=== PATIENT | female | born 1960 | race Caucasian/White ===

== ENCOUNTER 2024-11-19 00:11 | Emergency (ER) | payer MEDICARE, SELFPAY ==
[2024-11-19 00:19] VITALS: BP 109/69; PULSE 75; RESP 18; TEMP 36.7; O2SAT 97; BMI 38.3
--- OUTSIDE RECORDS SUMMARY | 2024-11-19 00:54 | XMS_ITS | Clinical Summary ---
Author Organization [place] [employer] Address [address] [facility] [place] [address] Phone Care Team Providers Care Weapons Electrical Engineering Officer Name Role Phone Wili Escobedo MD Primary Care Provider [phone] Allergies No known active allergies Medications acetaminophen (TYLENOL) 325 mg tablet Take 650 mg by mouth every 6 hours as needed. Active cetirizine (ZyrTEC) 10 mg capsule Take 1 capsule (10 mg total) by mouth 1 (one) time each day. Active metoprolol succinate (TOPROL-XL) 25 mg 24 hr tabletIndications :Paroxysmal atrial fibrillation (CMS/HCC V24, CMS/HCC V28) TAKE 1 TABLET BY MOUTH EVERY DAY 90 tablet 2 4 Active triamcinolone (NASACORT) 55 mcg nasal inhaler Administer 2 sprays into each nostril 1 (one) time each day. Active rosuvastatin (CRESTOR) 10 mg tablet TAKE 1 TABLET BY MOUTH EVERY DAY 90 tablet 1 5 Active Eliquis 5 mg tabletIndications :Paroxysmal atrial fibrillation (CMS/HCC V24, CMS/HCC V28) TAKE 1 TABLET BY MOUTH TWICE A DAY 180 tablet 1 5 Active tirzepatide, weight loss, (Zepbound) 5 mg/0.5 mL injection Inject 0.5 mL (5 mg total) under the skin every 7 (seven) days. Active Active Problems Problem Noted Date Diagnosed Date Mixed hyperlipidemia 03/17/2024 Assessment & Plan (03/17/2024 2:26 PM EST): Last LDL cholesterol June. Will update a new fasting lipid panel to reassess lipid control. Continue on current statin therapy. Orders: Lipid panel; Future Lipid panel Ascending aorta dilation (CMS/HCC V24) Overview (02/04/2024): Last Assessment & Plan: The patient has a history of an ascending aorta dilation. The ascending aorta was noted to be borderline dilated at 3.8 cm on the echocardiogram done in July 2022. We will reevaluate the ascending aorta dilation with a new echocardiogram in 1 year. Assessment & Plan (03/17/2024 2:26 PM EST): Patient has a history of mild dilatation of ascending aorta at 3.8 cm. Will have her undergo a repeat echocardiogram to reevaluate for progression. Orders: Transthoracic echocardiogram (TTE) complete with PRN contrast, bubble, strain, and 3D order panel; Future Obstructive sleep apnea 07/13/2022 Overview (02/04/2024): Last Assessment & Plan: The patient has a history of obstructive sleep apnea. During today's visit, I explained the importance of addressing her sleep apnea given her new diagnosis of paroxysmal atrial fibrillation. The patient expressed understanding about this and she is now agreeable to the sleep study. We will reorder the sleep study. CAD (coronary artery disease) 03/18/2021 Overview (02/04/2024): Last Assessment & Plan: The patient has a history of coronary artery disease. Currently, the patient denies any chest pain at rest or with exertion. The patient continues on secondary preventive therapy for CAD, including: statin and beta natoine. Will continue current therapy. Assessment & Plan (03/17/2024 2:26 PM EST): Patient underwent a left heart catheterization May 2021 which showed normal coronary arteries. Orders: Transthoracic echocardiogram (TTE) complete with PRN contrast, bubble, strain, and 3D order panel; Future Atrial fibrillation (CMS/HCC V24, CMS/[facility] V28) 1 05/18/2020 Overview (02/04/2024): Last Assessment & Plan: The patient has paroxysmal atrial fibrillation. This was demonstrated during a recent 30-day monitor. The patient was started on beta-antoine therapy with metoprolol and anticoagulation therapy with Eliquis. However, the patient did not start these medications. During today's visit, I had a conversation with the patient regarding her paroxysmal atrial fibrillation. The patient has a [id number] score of 2 (female gender and CAD). As such, anticoagulation therapy is recommended by the ACC A- fib guidelines. The patient does not have any past history of significant abnormal bleeding. We did discuss the fact that anticoagulation therapy could result in episodes of bleeding. Specifically, we discussed the risk of minor and major bleeding. After the discussion about the benefits and risk of anticoagulation therapy the patient agreed to start the anticoagulation therapy with Eliquis. She will also start the beta-antoine therapy with metoprolol as part of a rate control as part of a rate control strategy. Assessment & Plan (03/17/2024 2:26 PM EST): Patient has a history of paroxysmal atrial fibrillation. She continues on anticoagulation with apixaban 5 mg orally twice daily and metoprolol. Her heart rate is well-controlled today. She will occasionally experience a brief fluttering sensation, however denies any sustained palpitations. We discussed the role of undiagnosed sleep apnea and its effect on her heart including atrial fibrillation. At her last office visit, she was ordered for a sleep study, however this was not completed. She adamantly does not want to undergo a sleep study as she will not be able to tolerate the mask. She did undergo a sleep study in the past and is not tolerant of CPAP therapy. At this point, she will continue to work on healthy lifestyle and weight loss and continue current therapies. Orders: ECG 12 lead Transthoracic echocardiogram (TTE) complete with PRN contrast, bubble, strain, and 3D order panel; Future Dyspnea 03/18/2021 Overview (02/04/2024): Last Assessment & Plan: The patient continues to experience shortness of breath with exertion. She initially underwent a stress echocardiogram that was noted to be abnormal. Subsequently, she underwent a left heart catheterization that did not show any significant CAD. Given the scenario, it is unlikely that the patient's dyspnea is cardiac in nature. Therefore, we will discontinue the metoprolol. She will continue on aspirin and rosuvastatin. The patient will continue to follow-up with the pulmonology service regarding her dyspnea given her history of bronchial asthma. 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 Nuclear sclerosis 03/02/2014 Encounters Date Type Department Care Team Description 10/15/2024 Telephone [facility] [address] [place] [address] Linda-Price Gonzales MD Hypotension from Last 3 Months Immunizations Name Administration Dates Next Due Pfizer SARS-CoV-2 COVID-19, mRNA, LNP-S, preservative free 02/15/2021,07/04/2020,06/13/2020 Social History Tobacco Use Types Packs/Day Years Used Date Smoking Tobacco: Former Cigarettes Smokeless Tobacco: Never Tobacco Cessation:Counseling Given: Not Answered Alcohol Use Standard Drinks/Week Comments Not Currently 0 (1 standard drink = 0.6 oz pur e alcohol) Comments Unknown Sex and Gender Information Value Date Recorded Sex Assigned at Not on file Legal Sex Female 7:24 AM EST Gender Identity Not on file Sexual Orientation Not on file Obstetrics History Last Filed Vital Signs Vital Sign Reading Time Taken Comments Blood Pressure 106/71 06/04/2024 12:56 PM EST Pulse 64 03/17/2024 1:45 PM EST Temperature - - Respiratory Rate - - Oxygen Saturation 94% 03/17/2024 1:45 PM EST Inhaled Oxygen Concentration - - Weight 120 kg (265 lb) 06/04/2024 12:56 PM EST Height 172.7 cm (5' 8 ) 06/04/2024 12:56 PM EST Body Mass Index 40.29 06/04/2024 12:56 PM EST Plan of Treatment Health Maintenance Due Date Last Done Comments Breast Cancer Screening 1960 Hepatitis A Vaccines (1 of 2 - Risk 2-dose series) 11/27/1979 Cervical Cancer Screening: Pap Smear 1981 Hepatitis B Vaccines (1 of 3 - Risk 3-dose series) 2020 Cholesterol Screening (Lipid Panel) 04/09/2022 Colorectal Cancer Screening: Colonoscopy 04/09/2022 HIV Screening 04/09/2022 Hepatitis C Screening 04/09/2022 Hypertension/CHF/CAD Annual BMP Blood Test 04/09/2022 Social Influencers of Health Screening 04/09/2022 Depression Screening 04/30/2024 Influenza Vaccine (#1) 2024 , 03/12/2023, 02/17/2022, Additional history exists DTaP,Tdap,and Td Vaccines (2 - Td or Tdap) 08/12/2029 08/13/2019 Pneumococcal Vaccine: 50+ Years Completed 03/12/2023, 07/05/2010 COVID-19 Vaccine Completed 01/30/2024, , 02/15/2021, Additional history exists RSV Immunization Adult Patients Completed 05/05/2024 Zoster Vaccines Completed 08/23/2024, 04/14/2024 HIB Vaccines Aged Out No longer eligi ble based on patient's age to complete this topic HPV Vaccines Aged Out No longer eligi ble based on patient's age to complete this topic IPV Vaccines Aged Out No longer eligi ble based on patient's age to complete this topic MMR Vaccines Aged Out No longer eligi ble based on patient's age to complete this topic Meningococcal ACWY Vaccine Aged Out N o longer eligible based on patient's age to complete this topic Meningococcal B Vaccine Aged Out No l onger eligible based on patient's age to complete this topic RSV Immunization Patients Under 20 months Aged Out No longer eligible based on patient's age to complete this topic Varicella Vaccines Aged Out No longer eligible based on patient's age to complete this topic Insurance [facility] Member Subscriber Plan / Payer (Ef fective 2018-Present) Name:Lanette Monroe Relation to Subscriber:Self Name:Lanette Monroe Payer ID:[id number] Group ID:[id number] Type:Not on file Address: [address] [place] [id number] Care Teams Weapons Electrical Engineering Officer Relationship Specialty Start Date End Date Wili Escobedo MD [address] [place] [phone] PCP - General Family Medicine 03/17/24
--- OUTSIDE RECORDS SUMMARY | 2024-11-19 00:54 | XMS_ITS | Data Portability ---
Author Organization [facility] [employer] [facility] Address [address] [place] [phone] Care Team Providers Care Traffic Rate Analyst Name Role Phone MARVA HERNANDEZ Primary Care Provider Assessment No assessment recorded. Plan of Treatment Reminders Order Date Submit Date Provider Last Modified By Organization Details Last Modified Time Details Appointments None recorded. Lab culture, urine 2024 [facility] (Centralized Electronic Ordering - All Locations), Patient Can Go To The Location Of Their Choice, [id number] 18:05:31 urinalysis, dipstick 2024 [facility], [address] [place] [address], [phone] 21:04:09 BMP, serum or plasma 2024 [facility], [address] [place] [address], [phone] 21:03:40 Referral None recorded. Procedures None recorded. Surgeries None recorded. Imaging electrocard iogram 2024 [facility], [address] [place] [address], [phone] 19:59:12 Medication Orders lactated Ringers intravenous solution 2024 025 [id number], [address] [place], [address], 19:40:14 Cipro 250 mg tablet 2024 025 [id number], [address] [place], [address], 5 19:57:06 ciprofloxac in 500 mg tablet 2024 025 [id number], [address] [place], [address], 19:57:08 Patient TargetsNo targets recorded. Patient InstructionsNo instructions recorded. Reason for Referral None Reported. Results Created Date Observation Date Name Description Value Unit Range Abnormal Flag Note LastModifiedBy Organization Detail LastModifiedTime 09/26/1909/27/2024 URINE CULTU RE, UROLO GY CURTIS P urine culture, urology workup Final report Not Available [facility] ([facility]) [address] [place], [address], 09/27/2024 18:05:31 09/26/1909/27/2024 URINE CULTU RE, UROLO GY CURTIS P result 1 COMMEN T Mixed uroge nital renee Great er than 100,0 00 colon y formi ng units per mL Not Available [facility] ([facility]) [address] [place], [address], 09/27/2024 18:05:31 09/26/19 25 09/25/2024 elect murali gonzales am No observ ation record ed. [facility] Main - [address], [phone] 09/25/2024 19:59:11 Result Notes None recorded. Medical Equipment None Reported. Allergies No known drug allergies Medications Name Sig Start Date Stop Date Status Note LastModified by Organization Details LastModified Time cetirizine 10 mg tablet TAKE 1 TABLET BY MOUTH EVERY DAY NEEDED FOR ALLERGIES active Not Available Not Available No t Available azithromycin 250 mg tablet TAKE 2 TABLETS BY MOUTH TODAY, THEN TAKE 1 TABLET DAILY FOR 4 DAYS DIRECTED active Not Available Not Available No t Available prednisone 20 mg tablet TAKE 2 TABLETS BY MOUTH EVERY DAY FOR 5 DAYS active Not Available Not Available No t Available ciprofloxaci n 500 mg tablet TAKE 1 TABLET BY MOUTH EVERY 12 HOURS FOR 7 DAYS active Not Available Not Available N ot Available metoprolol succinate ER 25 mg tablet,exten ded release 24 hr TAKE 1 TABLET BY MOUTH EVERY DAY active Not Available Not Available No t Available nystatin 100,000 unit/gram topical powder APPLY TO AFFECTED AREA TWICE A DAY FOR 14 DAYS active Not Available Not Available No t Available albuterol sulfate HFA 90 mcg/actuatio n aerosol inhaler TAKE 2 PUFFS BY MOUTH EVERY 6 HOURS NEEDED FOR SHORTNESS OF BREATH WHEEZING active Not Available Not Available No t Available fluticasone propionate 50 mcg/actuatio n nasal spray,suspen salomon SPRAY 1 SPRAY IN BOTH NOSTRIL EVERY DAY IN THE MORNING active Not Available Not Available No t Available rosuvastatin 10 mg tablet TAKE 1 TABLET BY MOUTH EVERY DAY active Not Available Not Available No t Available budesonide-f ormoterol HFA 80 mcg-4.5 mcg/actuatio n aerosol inhaler TAKE 2 PUFFS BY MOUTH TWICE A DAY NEEDED WHEEZING FOR SHORTNESS OF BREATH active Not Available Not Available No t Available diclofenac 1 % topical gel APPLY TO AFFECTED AREA 4 TIMES A DAY active Not Available Not Available Not Available Gavilax 17 gram/dose oral powder DISSOLVE 17 GRAMS INTO 4 TO 8 OUNCES OF BEVERAGE AND DRINK DAILY active Not Available Not Available No t Available Eliquis 5 mg tablet TAKE 1 TABLET BY MOUTH TWICE A DAY active Not Available Not Available No t Available Trulicity 1.5 mg/0.5 mL subcutaneous pen injector INJECT0.5 ML SUBCUTANEOU SLY EVERY WEEK, ROTATE INJECTION SITES active Not Available Not Available No t Available Trulicity 0.75 mg/0.5 mL subcutaneous pen injector INJECT 0.75 MG SUBCUTANEOU SLY EVERY 7 DAYS *PA DENIED* active Not Available Not Available No t Available Trulicity 3 mg/0.5 mL subcutaneous pen injector TAKE 0.5 ML SUBCUTANEOU S INJECTION EVERY WEEK (ROTATE INJECTION SITES) active Not Available Not Available No t Available Zepbound 5 mg/0.5 mL subcutaneous pen injector INJECT 1 PEN SUBCUTANEOU SLY ONCE WEEKLY active Not Available Not Available No t Available Zepbound 2.5 mg/0.5 mL subcutaneous pen injector INJECT 2.5 MG SUBCUTANEOU S INJECTION EVERY WEEK,ROTATE INJECTION SITES active Not Available Not Available No t Available Vitals Date Recorded Oxygen saturation Oxygen saturation in Arterial blood by Pulse oximetry Heart rate Body height Respiratory rate Body weight Body temperature Systolic And Diastolic Provider Name and Address Organization Details Last Updated DateTime 5 96 % 96 % 85 /min 167.64 cm 16 /min 822243. 776 g 98.6 [degF] 130/80 mm[Hg] Not Available [facility] - production 19:15:41 Social History None recorded. Functional Status None recorded. Mental Status None recorded. Family History Nothing Reported. Medical History No medical history recorded. Gynecological HistoryNo gynecological history recorded. Obstetrics History GPAL:G 0 P 0 0 0 0 Past Encounters Encounter ID Performer Location Encounter Start Date Encounter Closed Date Diagnosis/Indication Diagnosis SNOMED-CT Code Diagnosis ICD10 Code Diagnosis Note [id number] LETICIA PENA MD [facility] [address] [place] [phone] 09/25/2024 19:02:28 09/26/2024 01:23:33 Urinary symptoms 129920785 R39.9 Evaluation in the field was performed by my nurse practitioner physicians assistant colleague, as noted above, I provided real-time direction and supervisio n for this visit. The evaluation revealed The patient is a 63-year-ol d female with a past medical history of asthma, atrial fibrillati on, CAD s/p AMI and recurrent urinary tract infections /pyeloneph ritis (last episode approximat gil two months ago), presenting with complaints of fever up to 102.5 F, burning with urination, cloudy urine, and lower abdominal pain. She reports that symptoms began about one day ago, with worsening fever today. She took acetaminop hen 1300 mg (two 650 mg tablets) approximat gil four hours prior to evaluation . She denies nausea, vomiting, flank or back pain, but endorses suprapubic (lower abdominal) discomfort . VS: BP : 130/ 80, HR 85, RR 16, SpO2 96%, Room Air at Rest, Temperatur e 98.6 FGeneral: Alert, awake, oriented, in no acute distress.L ungs: Clear to auscultati on bilaterall y.Abdomen: Soft, non-disten ded, with suprapubic tenderness ; no CVA tenderness .Urinalysi s: Positive for leukocyte esterase, nitrites, blood and ketonesBMP : Na 138 , K 3.7 , Cl 102 , iCa 1.15, TCO2 23 , Glu 117 , BUN 12 , Crea 0.9ECG: NSR 78 bpm, QTc [address]-T changesHct 44 %, Hb 15 g/dLAllerg ies: Reviewed Impression :Acute urinary tract infection (likely complicate d, given history of recurrent UTI/pyelon ephritis). No flank pain or CVA tenderness currently, making pyelonephr itis less likely at this time, but close monitoring is warranted. Plan:L[place]a [place] Ringer s 1 L administer ed.ECG confirmed normal QTc; patient started on ciprofloxa bharathi 500 mg PO BID for 7 days, with the first dose administer ed by the nurse practitioner physicians assistant. Urine culture sent for definitive organism identifica tion and susceptibi lity testing.Pt advised to continue acetaminop hen as needed; advised to decrease dose to 650 mg every 4 6 hours or 975 mg (1.5 tablets) every 8 hours as needed, ensuring safe total daily limits.Enc ouraged oral fluid intake.Dis cussed signs requiring prompt medical attention, including new or worsening flank pain, persistent or worsening fever, nausea or vomiting, rigors, or other signs of systemic illness. Primary care, consider__ _ Dispositio n: We discussed the diagnostic uncertaint y of home visits and the risk associated with this. In this case, the patient and I felt this to be an acceptable and reasonable amount of risk given the benefit of avoiding an ED visit. We discussed the need to seek care urgently/e mergently in the setting of any new or worsening serious symptoms, particular ly new or worsening flank pain, persistent or worsening fever, nausea or vomiting, rigors, or other signs of systemic illness. Health Concerns Section Related Observation LastModified by Organization Detai ls LastModified Time None Recorded Concern Status LastModified by Organization Details LastModified Time None Recorded Advance Directives Directive None Recorded Payers Insurance Date Sequence Insurance Name Policy Number Policy Grigsby Covered Member ID Grigsby Member ID Guarantor Name 09/25/2024 1 [facility] [employer] - DOS ON OR AFTER 2022 - DUAL ELIGIBLE - ALF OPTIONS AND ONE CARE (MEDICARE REPLACEMENT/ADV ANTAGE - HMO) Lanette Monroe [id number] Lanette Monroe Notes Date Note Type Note Provider Name and Address Organization Details Recorded Time 09/25/2024 text/html [facility] Nurse Triage Notes (Sarah Jones): Reason For Request: UTI/fever Patient Reports: Painful urination; Frequent and increased urination with flank pain; Painful urination with or without fever Denies: Unable to void greater than 5 hours Erection that will not go away after 2 hours Fall or trauma that results in urinary incontinence in the setting of pain Fall or injury that results in incontinence in the absence of pain Lower back pain either unilateral or bilateral, unable to void, painful urination -hematuria Inability to fully empty bladder Chief Complaints: Urinary Symptoms PMH: Asthma, Arrhythmias (e.g., Atrial Fibrillation) PMH Reviewed at 09/25/2024 Allergies Reviewed at 09/25/2024 Comments: Member calls in complaining of a fever of 102.5. Took Tylenol at 3:40 and not helping at all. Believes it is a urinary tract infection. Burning with urination and cloudy urine and back pain .symptoms for a day, fever got worse today. Has a history of UTIs and they can turn into kidney infections. 63 y.o female complains of Urinary Symptoms I provided information on the mobile health provider response time and advised the patient and/or caregiver to monitor reported signs and symptoms. I discussed the warning signs of when to seek emergency care. Jen Jones RN Rn Case Manager Organization Information for [facility] [employer] Name: [employer]. Address: [address] [place] [address], Inspector And Clipper: Ronal Albarran MD CLIA No.: [id number] Rn Case Manager POC Test Results from Mike [facility]keon Urine Dipstick (19:15:44) Urine leukocytes: 70+ CHAYO Urine nitrites: ++ NIT Urine urobilinogen: - URO Urine protein: - PRO Urine pH: 5 pH Urine blood: ++ BLO Urine specific gravity: 1.010 SG Urine ketones: + KET Urine bilirubin: - ROSIE Urine glucose: - GLU iSTAT Chem8+ (19:36:58) Na: 138 mEq/L K: 3.7 mEq/L Cl: 102 mEq/L iCa: 1.15 mmol/L TCO2: 23 mmol/L Glu: 117 mg/dL BUN: 12 mg/dL Crea: 0.9 mg/dL Hct: 44 % Hb: 15 g/dL A mmol/L Cartridge Number: [id number] EKG (19:49:26) EKG test performed. Attachments uploaded as part of this test result can be found under Documents section. .................. .................. .................. .................. .................. .................. .................. ............... Rn Case Manager Note From Mike Mckeon: Dispatched to the call address for the female with UTI symptoms. Pt states since yesterday she has had burning sensation when urinating, urgency, frequency and inability to fully empty bladder. Pt also complains of diffuse lower abd pain and lower back pain. She advises she is prone to UTIs with her last one being a few months ago. She states she had a fever of 102.5 but gook 1300mg of Tylenol with good effect. Pt denies chest pain, diff breathing/sob, cough, n/v/d or other complaints at this time. Pt was found opening door, CAOx4, airway open and patent, breathing non labored, able to speak in full sentences, -JVD, -HEENT, skin PWD with good turgor, mucous membranes pink and moist, lungs CTA, pupils PERRL, +CMSx4, afebrile, abd soft non tender/distended, UA (Positive). Pt was assessed with full set of vitals. UA. [facility]. IV with Blood draw (20g R AC) BMP, 1LR of LR. 12 lead EKG. [facility] [place]. Pt given 500mg PO Cipro. IV removed. Script called into preferred pharmacy. Red flags discussed. ALL times are approx. [facility] [place] Orders: culture, urine: Performed urinalysis, dipstick: Performed BMP, serum or plasma: Performed [facility] [place] Medication Orders: lactated Ringers intravenous solution: Administered Cipro 250 mg tablet: Administered .................. .................. .................. .................. .................. .................. .................. ............... [facility] [place] Consulted: Leticia Pena .................. .................. .................. .................. .................. .................. .................. ............... Disposition: Fulfilled LETICIA PENA MD [address] [facility],[address], [place], [phone], LISA SILVERMAN 09/25/2024 20:49:33 OBGyn Episode No OBEpisode recorded.
--- NOTE | 2024-11-19 02:15 | ED_ITS ---
HPI - Ear Problem General Chief complaint: Ear Problems Stated complaint: ear pain Time Seen by Provider: 11/19/24 01:52 Source: patient Mode of arrival: ambulatory Limitations: no limitations History of Present Illness ED Provider: Dr. Ashlie Sharma HPI Narrative: Patient comes to the emergency room complaining of bilateral ear pain. Patient states that she has been out swimming. Patient states that she has a chronic ear condition secondary to her eczema where her ears get externally very swollen. Patient states that she has noted that now her ears are more swollen bilaterally. Patient complaining of having the sensation that she is under water. Denies fever or chills. Patient also reports that she recently had a URI Related Data Previous Rx's ?Medication ?Instructions ?Recorded ciprofloxacin 0.3 %-dexamethasone 4 drp otic (ears) BI D 7 days #7.5 11/19/24 0.1 % ear drops,suspension mL Allergies Allergy/AdvReac Type Severity Reaction Status Date / Time No Known Allergies Allergy Unverified 11/19/24 00:23 Review of Systems Review of Systems: Constitutional : No Weight loss, No Fever, No Chills, No Night Sweats, No Fatigue, No Malaise ENT/Mouth : No Hearing loss, complaining of bilateral ear pain, complaining of external ear swelling bilaterally, No Nasal Congestion, No Sinus Pain, No Hoarseness, No sore throat, No Rhinorrhea, No Swallowing Difficulty Eyes: No Eye Pain, No Swelling, No Redness, No Foreign Body, No Discharge, No Vision Changes Cardiovascular : No Chest Pain, No SOB, No Dyspnea on Exertion, No Orthopnea, No Edema, No Palpitations Respiratory : No Cough, No Sputum, No Wheezing, No Smoke Exposure, No Dyspnea Gastrointestinal : No Nausea, No Vomiting, No Diarrhea, No Constipation, No abdominal Pain, No Hematochezia, No Melena Genitourinary : no irregular bleeding, No Dysuria, No Urinary Frequency, No Hematuria, No Urinary Incontinence, No Urgency, No Flank Pain, No Urinary Flow Changes, No Hesitancy Musculoskeletal : No joint pain, No Myalgias, No Joint Swelling Skin : No Skin Lesions, No rash Neuro : No Weakness, No Numbness, No Paresthesias, No Loss of Consciousness, No Dizziness, No Headache Psych : No Anxiety/Panic, No Depression, No SI/HI/AH/VH, No Social Issues, Heme/Lymph: No Bruising, No Bleeding,No Lymphadenopathy Endocrine : No Polyuria, No Polydipsia, No Temperature Intolerance [facility] Social History Social History (System 05/25/22 @ 15:56 by Lanette Hassan) Smoked in Last 30 Days: No Substance Use Type: Marijuana Advance Directives: No Advance Directives Information Provided: Yes Patient : No Physical Exam Exam: Exam: Appearance: Alert. Oriented X3. No acute distress. Eyes: Pupils equal, round and reactive to light. ENT: Pharynx normal. Patient has bilateral external ears are very swollen. Patient states that they are more swollen that baseline, patient has eczema which makes her ears look very swollen by another worse. Difficult to visualize did. Tympanic membranes due to the ear canals swelling. No pain to palpation over the mastoid bones bilaterally Neck: Normal inspection. Neck supple. No lymph nodes noted. No crepitus CVS: Normal heart rate and rhythm. Pulses normal. Normal S1 and S2 Respiratory: No respiratory distress. Breath sounds normal. No Wheezing. No rales Abdomen: Soft and nontender. No rigidity. No distention. Skin: Skin warm and dry. Normal skin color. Normal skin turgor. Extremities: No lower extremity edema. No Lacerations. No Rash Neuro: Oriented X 3. No motor deficit. No sensory deficit. Moving all extremities. No slurred speech. CN 2 through 12 grossly intact Psych: calm, cooperative, normal affect Vital Signs: Vital Signs: Last Vital Signs Temp 98.1 F 11/19/24 00:19 Pulse 75 11/19/24 00:19 Resp 18 11/19/24 00:19 BP 109/69 11/19/24 00:19 Pulse Ox 97 11/19/24 00:19 O2 Del Method Room Air 11/19/24 00:19 BMI result Body Mass Index 38.3 Medical Decision Making Medical Decision Making MDM Narrative: I discussed the physical exam with the patient. Due to the swelling, it is very hard to see the tympanic membrane. one earwik was applied in each ear. Patient will need otic abx. Patient agrees with plan. Given the presentation of the patient, it almost looks like external otitis. However, patient states that her ears are all way significantly swollen but this time they are a bit more swollen, no pain over the mastoid bone bilaterally Differential Diagnosis Differential Diagnoses: The differential diagnosis associated with the presentation includes (As above) Discharge Plan Discharge Clinical Impression: Otitis media Patient Disposition: Home, Self-Care Instructions: Ear Infection (ED) Additional Instructions: Please follow-up with your primary care physician tomorrow. If you have any worsening or new symptoms, please return to the emergency room or call 911 Prescriptions: New ciprofloxacin-dexamethasone 0.3-0.1 % drops,suspension 4 drp otic (ears) BID 7 Days Qty: 7.5 0RF Print Language: Monegasque
[2024-11-19 02:36] VITALS: BP 109/69; PULSE 75; RESP 18; TEMP 36.7; O2SAT 97
== END 2024-11-19 02:36 | disposition home or self-care (01) ==
PROVIDERS: Emergency Provider Emergency Medicine
DX: H66.93 Otitis media, unspecified, bilateral (principal); H92.03 Otalgia, bilateral; F12.90 Cannabis use, unspecified, uncomplicated; H93.8X3 Other specified disorders of ear, bilateral; L30.9 Dermatitis, unspecified
CPT/HCPCS: 99283